=== PATIENT | female | born 2000 | race Caucasian/White ===

== ENCOUNTER → 2020-04-29 | Outpatient (CLI) | payer OTHER | LOC: ZCOL.LAB 14:39 | DX: Z20.828 Contact with and (suspected) exposure to other viral communicable diseases (principal) ==

== ENCOUNTER → 2020-05-23 | Emergency (ER) | payer OTHER ==
[~2020-05-23] VITALS: Ht 165.1 cm; Wt 120.5 kg
[2020-05-23 20:34] VITALS: BP 138/98; TEMP 97.3
[2020-05-23 21:13] LABS: BASO % 0.5 % (0.0-2.0); EOS # 0.1 (0.0-0.7); EOS % 0.8 % (0-4.0); GRAN # 5.9 (1.4-6.5); HEMATOCRIT 46.5 % (35.0-45.0); HEMOGLOBIN 15.5 g/dl (12.0-15.0); LYMPH # 1.1 (1.2-3.4); LYMPH % 14.4 % (20.0-51.0); MEAN CELL VOLUME 88 fl (80.0-95.0); MEAN CORPUSCULAR HEMOGLOBIN 29 pg (26.0-32.0); MEAN CORPUSCULAR HGB CONC 33 g/dl (33.0-37.0); MEAN PLATELET VOLUME 10.2 fl (7.4-10.4); MONO # 0.7 (0.1-0.6); PLATELET COUNT 276 K/mm3 (130-400); RED BLOOD COUNT 5.29 M/mm3 (4.10-5.30); REDCELL DISTRIBUTION WIDTH-CV 12.9 % (11.5-14.5)
[2020-05-23 21:32] LABS: ALBUMIN 4.8 gm/dL (3.5-5.0); BILIRUBIN,TOTAL 0.5 mg/dL (0.0-1.0); C-REACTIVE PROTEIN 3.2 mg/dL (0.0-0.9); CALCIUM 10.1 mg/dL (8.4-10.2); CREATININE, serum 0.69 (0.52-1.25); POTASSIUM 3.9 mmol/L (3.4-5.0); TOTAL PROTEIN 8.6 gm/dL (6.4-8.2)
[2020-05-23 22:03] LABS: COLLECTION METHOD CLEAN CATCH
[2020-05-23 22:12] LABS: MUCOUS Present /lpf; PH 5 (5-8); SQUAMOUS EPITHELIAL 0-2 /hpf; URINE APPEARANCE Clear; URINE BACTERIA Rare /hpf; URINE BILIRUBIN Negative (NEGATIVE); URINE BLOOD Negative (NEGATIVE); URINE COLOR Yellow; URINE GLUCOSE Negative (NEGATIVE); URINE KETONE Trace (NEGATIVE); URINE LEUKOCYTE ESTERASE Negative (NEGATIVE); URINE NITRATE Negative (NEGATIVE); URINE PROTEIN(semi-quant) Negative (NEGATIVE); URINE UROBILINOGEN Negative (NEGATIVE)
[2020-05-24 02:30] VITALS: PULSE 80
== END ==
LOC: COL.ER 20:25
PROVIDERS: Physician Assistant
DX: K86.89 Other specified diseases of pancreas (principal); J98.59 Other diseases of mediastinum, not elsewhere classified; R91.8 Other nonspecific abnormal finding of lung field; Z32.02 Encounter for pregnancy test, result negative; Z88.1 Allergy status to other antibiotic agents
CPT/HCPCS: J1885; J2405; J7030; Q9967

== ENCOUNTER → 2020-06-11 | Outpatient (CLI) | payer OTHER | LOC: COL.RAD 08:20 | DX: Z01.812 Encounter for preprocedural laboratory examination (principal); C83.39 Diffuse large B-cell lymphoma, extranodal and solid organ sites; R51 Headache; J34.9 Unspecified disorder of nose and nasal sinuses ==

== ENCOUNTER → 2020-07-09 | Outpatient (CLI) | payer OTHER | LOC: COL.RAD | DX: C85.90 Non-Hodgkin lymphoma, unspecified, unspecified site (principal); N28.89 Other specified disorders of kidney and ureter; K86.9 Disease of pancreas, unspecified; Z98.890 Other specified postprocedural states | CPT/HCPCS: J1644; Q9967 ==

== ENCOUNTER → 2020-10-02 | Outpatient (CLI) | payer OTHER | LOC: COL.RAD 11:16 | DX: C83.39 Diffuse large B-cell lymphoma, extranodal and solid organ sites (principal) | CPT/HCPCS: A9560; J1644 ==

== ENCOUNTER → 2020-12-26 | Outpatient (CLI) | payer OTHER | LOC: COL.RAD 06:59 | DX: C83.39 Diffuse large B-cell lymphoma, extranodal and solid organ sites (principal); K76.0 Fatty (change of) liver, not elsewhere classified; Z95.9 Presence of cardiac and vascular implant and graft, unspecified | CPT/HCPCS: Q9967 ==

== ENCOUNTER → 2021-04-23 | Outpatient (CLI) | payer OTHER | LOC: COL.RAD 10:21 | DX: C83.39 Diffuse large B-cell lymphoma, extranodal and solid organ sites (principal); N83.201 Unspecified ovarian cyst, right side | CPT/HCPCS: Q9967 ==

== ENCOUNTER → 2021-10-19 | Outpatient (CLI) | payer OTHER | LOC: COL.RAD 09:47 | DX: C83.39 Diffuse large B-cell lymphoma, extranodal and solid organ sites (principal); J32.0 Chronic maxillary sinusitis; J32.3 Chronic sphenoidal sinusitis; Z97.5 Presence of (intrauterine) contraceptive device | CPT/HCPCS: Q9967 ==

== ENCOUNTER → 2022-04-19 | Outpatient (CLI) | payer OTHER | LOC: COL.RAD 09:36 | DX: C85.90 Non-Hodgkin lymphoma, unspecified, unspecified site (principal) | CPT/HCPCS: Q9967 ==